=== PATIENT | male | born 1985 | race Caucasian/White ===

== ENCOUNTER 2024-09-03 10:47 | Emergency (ER) | payer OTHER ==
[~2024-09-03] VITALS: Ht 187.9 cm; Wt 117.9 kg
[2024-09-03] MEDS ORDERED: GABAPENTIN400 MG PO (10:58)
[2024-09-03] MEDS ORDERED: PENICILLIN VK500 MG PO (11:21)
[2024-09-03] MEDS ORDERED: BENZOCAINE 20% 11.9 GM GEL T STA (11:22)
[2024-09-03] MEDS ORDERED: Lidocaine Hydrochloride 15 ML UDC PO STA (11:22)
[2024-09-03] MEDS ORDERED: Doxycycline Hyclate 100 MG TAB PO ONE (11:25)
[2024-09-03] MEDS ORDERED: traMADol Hydrochloride 50 MG TAB PO ONE (11:25)
== END 2024-09-03 11:33 | disposition home or self-care (01) ==
LOC: ED 10:47
DX: S30.861A Insect bite (nonvenomous) of abdominal wall, initial encounter (principal); K02.9 Dental caries, unspecified; Z79.899 Other long term (current) drug therapy; W57.XXXA Bitten or stung by nonvenomous insect and other nonvenomous arthropods, initial encounter; Y93.89 Activity, other specified; Y92.89 Other specified places as the place of occurrence of the external cause; Y99.8 Other external cause status